=== PATIENT | male | born 1960 | race African-American/Black ===

== ENCOUNTER 2022-08-26 11:38 | Inpatient (IN) | payer OTHER ==
[2022-08-26 14:20] VITALS: BMI 29.9
[2022-08-26] MEDS ORDERED: Ondansetron PF 4 MG/2 ML Vial IVP PRN (14:35)
[2022-08-26] MEDS ORDERED: Acetaminophen 325 MG TAB PO PRN (14:35)
[2022-08-26] MEDS ORDERED: Senokot S 8.6-50 MG TAB PO PRN (14:35)
[2022-08-26 15:46] LABS: Troponin I 0.088 ng/mL (< 0.028)
[2022-08-26] MEDS: Famotidine/PF 20 mg/2ml Vial SLOW IVP SCH ×2 (19:50→19:55)
[2022-08-26] MEDS: Apixaban 5 MG TAB PO SCH (19:50)
[2022-08-26] MEDS: Carvedilol 25 MG TAB PO SCH (19:50)
[2022-08-26] MEDS ORDERED: Atorvastatin Calcium 40 MG TAB PO SCH (21:00)
[2022-08-27 05:01] LABS: #Eosinphils 0.3 thou/uL (0.0-0.7); #Monocytes 0.8 thou/uL (0.11-0.59); #Neutrophils 5.2 thou/uL (1.40-6.50); %Basophils 0.5 % (0.0-1.0); %Eosinophils 3.1 % (0.0-10.0); %Lymphocytes 23.3 % (21.0-51.0); %Monocytes 9.6 % (0.0-10.0); %Neutrophils 63.1 % (42.0-75.0); Hemoglobin 15.7 g/dL (14.0-18.0); Mean Corpuscular HGB CONC 30.4 g/dL (32.0-36.0); Mean Corpuscular Hemoglobin 26.5 pg (27.0-31.0); Mean Platelet Volume 11.7 fL (7.4-10.4); Platelet Count 137 10x3/uL (130-400); RBC Distribution Width 19.1 % (11.5-14.5); Red Blood Cell (RBC) Count 5.93 mill/uL (4.70-6.10); White Blood Cell (WBC) Count 8.3 10x3/uL (4.8-10.8)
[2022-08-27 05:15] LABS: Anion Gap 15 mmol/L (10-20); BUN (Urea Nitrogen) 19 mg/dL (8.4-25.7); Calc. Creatinine Clearance 73 mL/min (70-130); Calcium 8.4 mg/dL (7.8-10.44); Carbon Dioxide 20 mmol/L (23-31); Chloride 111 mmol/L (98-107); Cholesterol 85 mg/dl (< 200 Desired); Estimated GFR 60; Glucose 75 mg/dL (80-115); HDL Cholesterol 21 mg/dL (>60 Neg Risk); LDL Cholesterol, Calculated 53 mg/dL; Sodium 141 mmol/L (136-145); Triglycerides 54 mg/dL (Less than 150)
[2022-08-27] MEDS: Furosemide 40 MG/4 ML VIAL SLOW IVP SCH ×2 (06:10→15:29)
[2022-08-27] MEDS ORDERED: Lisinopril 20 MG TAB PO SCH (09:00)
[2022-08-27] MEDS ORDERED: Spironolactone 25 MG TAB PO SCH (09:00)
[2022-08-27] MEDS ORDERED: Aspirin 81 mg Enteric Coated Tablet PO SCH (09:00)
[2022-08-27] MEDS: Apixaban 5 MG TAB PO SCH (10:08)
[2022-08-27] MEDS: Carvedilol 25 MG TAB PO SCH (10:09)
[2022-08-27] MEDS: Famotidine/PF 20 mg/2ml Vial SLOW IVP SCH (10:09)
[2022-08-27 10:58] LABS: CKMB 3.4 ng/mL (0-6.6)
[2022-08-27 20:15] VITALS: BP 178/110; TEMP 97.8
== END 2022-08-27 20:16 | DRG 291 ==
LOC: EEVIPCON → OBSVTOIN 13:44 → 2NO 13:44
PROVIDERS: ADMIT Hospitalist; ATTEND Internal Medicine
DX: I11.0 Hypertensive heart disease with heart failure (principal); I50.33 Acute on chronic diastolic (congestive) heart failure; I48.0 Paroxysmal atrial fibrillation; Z79.899 Other long term (current) drug therapy; Z79.82 Long term (current) use of aspirin
CPT/HCPCS: 36415; 80048; 80061; 82553; 83735; 83880; 84443; 84484; 85025; 93306; 93798; J1940; S0028